=== PATIENT | male | born 1980 | race Caucasian/White ===

== ENCOUNTER 2017-12-12 08:26 | Emergency (ER) | payer SELFPAY ==
--- NOTE | 2017-12-12 08:37 | ER Report ---
History and Physical Time Seen By MD: 08:38 Hx. of Stated Complaint: Patient complains of pain all over, mostly neck and back. HPI/ROS CHIEF COMPLAINT: diffuse musculoskeletal pain HISTORY OF PRESENT ILLNESS: This is a 37 year old male. He has a history of episodes of diffuse pain and a history of neck and back problems. Other doctors have told him that they think he may had ankylosing spondylitis or other problems. He has had about 1 week of diffuse musculoskeletal pain, worsened to the point today that he decided to come in to try and get some relief. He has had narcotics in the past for pain medicines, but does not like the way they make him feel and uses them only with severe pain. He prefers to use anti-inf lammatories. He has been having some pain in his chest as well. Across the chest and into his left arm. No fevers, but has had some sweats. He has mild nausea but no vomiting. Normal bowel and bladder, without changes. He had injured his left ankle last week with bruising and still has pain there. Most of the pain is in his back and neck. No over the counter medicines or prescriptions at this time. No rashes. REVIEW OF SYSTEMS: As above. Allergies: Coded Allergies: Penicillins (Verified Allergy, Mild, 12/12/17) UNKNOWN REACTION Home Meds Active Scripts Hydrocodone Bit/Acetaminophen (HYDROCODON-ACETAMINOPHEN 5-325) 1 Each Tablet, 1 EACH PO Q4H PRN for PAIN, #8 TAB 0 Refills Prov:KELTON HUERATS MD 12/12/17 Ketorolac Tromethamine (KETOROLAC TROMETHAMINE) 10 Mg Tab, 10 MG PO Q6H PRN for PAIN, #12 TAB 0 Refills Prov:KELTON HUERTAS MD 12/12/17 Reviewed Nurses Notes: Yes Hx Substance Use Disorder: No Hx Alcohol Use: Yes (RARE) Constitutional Vital Sign - Last 24 Hours 12/12/17 12/12/17 12/12/17 12/12/17 08:29 08:30 08:45 09:00 Temp 97.6 Pulse 83 85 81 71 Resp 16 B/P (MAP) 147/97 147/97 (114) 132/86 (101) Pulse Ox 94 94 94 92 O2 Delivery Room Air 12/12/17 12/12/17 12/12/17 12/12/17 10:00 10:15 10:30 10:39 Pulse 74 73 75 B/P (MAP) 125/89 (101) 121/90 (100) 131/103 (112) Pulse Ox 92 95 91 Physical Exam General Appearance: The patient is alert. Mild distress due to diffuse pain. Non-toxic in appearance. Eyes: Pupils are equal, round. Reactive to light. No pallor, injection or icterus. Extraocular movements are intact. ENT: Mucous membranes are moist. Normal oral mucosa. Posterior oropharynx is normal. Normal tympanic membranes and canals. Neck: Supple and non tender anterior. No lymphadenopathy. Respiratory: Breathing easily and unlabored. Lungs are clear to auscultation. Cardiovascular: Regular rate and rhythm. No murmurs, gallops or rubs. Normal capillary refill. No edema. Gastrointestinal: Abdomen is soft and non tender. Nondistended. Normal active bowel sounds. No costovertebral angle tenderness with percussion. Neurological: Alert and oriented x3. Cranial nerves II through XII show no acute deficits on my exam. No focal neurologic deficits in the extremities. Skin: Warm and dry. No rashes. Musculoskeletal: Pain diffusely, worse in neck, shoulders and lower back. Pain in both malleoli of the left ankle, but none in the head of 5th metatarsal. Normal in calves bilaterally. Full range of motion. Diffuse tenderness in the neck and back, more in the muscles than midline. DIFFERENTIAL DIAGNOSIS: After history and physical exam, differential diagnosis was considered for diffuse musculoskeletal pain, suggesting a polyarthropathy or connective tissue disorder with current flare up. Will check the ankle, the chest pain for other causes, and other basic labs looking for metabolic or infectious problems as well. Medical Decision Making Data Points Result Diagram: 12/12/17 0835 12/12/17 0835 Laboratory Hematology Test 12/12/17 08:35 12/12/17 09:23 Red Blood Count 5.89 M/uL (4.00-5.60) Mean Corpuscular Volume 94.6 fL (80.0-96.0) Mean Corpuscular Hemoglobin 32.8 pg (26.0-33.0) Mean Corpuscular Hemoglobin Concent 34.7 g/dL (32.0-36.0) Red Cell Distribution Width 13.9 % (11.5-14.5) Mean Platelet Volume 9.3 fL (7.2-11.1) Neutrophils (%) (Auto) 63.8 % (39.4-72.5) Lymphocytes (%) (Auto) 23.2 % (17.6-49.6) Monocytes (%) (Auto) 9.4 % (4.1-12.4) Eosinophils (%) (Auto) 2.5 % (0.4-6.7) Basophils (%) (Auto) 1.1 % (0.3-1.4) Nucleated RBC Relative Count (auto) 0.0 /100WBC Neutrophils # (Auto) 4.8 K/uL (2.0-7.4) Lymphocytes # (Auto) 1.7 K/uL (1.3-3.6) Monocytes # (Auto) 0.7 K/uL (0.3-1.0) Eosinophils # (Auto) 0.2 K/uL (0.0-0.5) Basophils # (Auto) 0.1 K/uL (0.0-0.1) Nucleated RBC Absolute Count (auto) 0.00 K/uL Erythrocyte Sedimentation Rate 3 mm/HOUR (0-15) Sodium Level 137 mmol/L (137-145) Potassium Level 4.3 mmol/L (3.5-5.0) Chloride Level 103 mmol/L (98-107) Carbon Dioxide Level 24 mmol/L (22-30) Blood Urea Nitrogen 14 mg/dl (9-21) Creatinine 0.90 mg/dl (0.66-1.25) Glomerular Filtration Rate Calc > 60.0 Random Glucose 103 mg/dl (75-110) Calcium Level 9.4 mg/dl (8.4-10.2) Total Bilirubin 0.3 mg/dl (0.2-1.3) Aspartate Amino Transf (AST/SGOT) 27 U/L (0-35) Alanine Aminotransferase (ALT/SGPT) 60 U/L (0-56) Alkaline Phosphatase 61 U/L (0-126) Troponin I < 0.012 ng/ml C-Reactive Protein 0.7 mg/dl (<1.0) Total Protein 7.2 g/dl (6.3-8.2) Albumin 4.5 g/dl (3.5-5.0) Urine Color Straw Urine Clarity Clear Urine pH 6.0 pH (4.8-9.5) Urine Specific [place] 1.006 Urine Protein Negative mg/dL (NEGATIVE) Urine Glucose (UA) Negative mg/dL (NEGATIVE) Urine Ketones Negative mg/dL (NEGATIVE) Urine Blood Negative (NEGATIVE) Urine Nitrite Negative (NEGATIVE) Urine Bilirubin Negative (NEGATIVE) Urine Urobilinogen Negative mg/dL (0.2-1.9) Urine Leukocyte Esterase Negative (NEGATIVE) Urine RBC None /HPF (0-2/HPF) Urine WBC <1 /HPF (0-5/HPF) Urine Squamous Epithelial Cells None /LPF (</=FEW) Urine Bacteria Negative /HPF (NONE-FEW) Urine Mucus None /HPF (NONE-FEW) Chemistry Test 12/12/17 08:35 12/12/17 09:23 White Blood Count 7.5 k/uL (4.5-11.0) Red Blood Count 5.89 M/uL (4.00-5.60) Hemoglobin 19.3 g/dL (14.0-18.0) Hematocrit 55.7 % (42.0-52.0) Mean Corpuscular Volume 94.6 fL (80.0-96.0) Mean Corpuscular Hemoglobin 32.8 pg (26.0-33.0) Mean Corpuscular Hemoglobin Concent 34.7 g/dL (32.0-36.0) Red Cell Distribution Width 13.9 % (11.5-14.5) Platelet Count 199 K/uL (150-450) Mean Platelet Volume 9.3 fL (7.2-11.1) Neutrophils (%) (Auto) 63.8 % (39.4-72.5) Lymphocytes (%) (Auto) 23.2 % (17.6-49.6) Monocytes (%) (Auto) 9.4 % (4.1-12.4) Eosinophils (%) (Auto) 2.5 % (0.4-6.7) Basophils (%) (Auto) 1.1 % (0.3-1.4) Nucleated RBC Relative Count (auto) 0.0 /100WBC Neutrophils # (Auto) 4.8 K/uL (2.0-7.4) Lymphocytes # (Auto) 1.7 K/uL (1.3-3.6) Monocytes # (Auto) 0.7 K/uL (0.3-1.0) Eosinophils # (Auto) 0.2 K/uL (0.0-0.5) Basophils # (Auto) 0.1 K/uL (0.0-0.1) Nucleated RBC Absolute Count (auto) 0.00 K/uL Erythrocyte Sedimentation Rate 3 mm/HOUR (0-15) Glomerular Filtration Rate Calc > 60.0 Calcium Level 9.4 mg/dl (8.4-10.2) Total Bilirubin 0.3 mg/dl (0.2-1.3) Aspartate Amino Transf (AST/SGOT) 27 U/L (0-35) Alanine Aminotransferase (ALT/SGPT) 60 U/L (0-56) Alkaline Phosphatase 61 U/L (0-126) Troponin I < 0.012 ng/ml C-Reactive Protein 0.7 mg/dl (<1.0) Total Protein 7.2 g/dl (6.3-8.2) Albumin 4.5 g/dl (3.5-5.0) Urine Color Straw Urine Clarity Clear Urine pH 6.0 pH (4.8-9.5) Urine Specific [place] 1.006 Urine Protein Negative mg/dL (NEGATIVE) Urine Glucose (UA) Negative mg/dL (NEGATIVE) Urine Ketones Negative mg/dL (NEGATIVE) Urine Blood Negative (NEGATIVE) Urine Nitrite Negative (NEGATIVE) Urine Bilirubin Negative (NEGATIVE) Urine Urobilinogen Negative mg/dL (0.2-1.9) Urine Leukocyte Esterase Negative (NEGATIVE) Urine RBC None /HPF (0-2/HPF) Urine WBC <1 /HPF (0-5/HPF) Urine Squamous Epithelial Cells None /LPF (</=FEW) Urine Bacteria Negative /HPF (NONE-FEW) Urine Mucus None /HPF (NONE-FEW) Urinalysis Test 12/12/17 09:23 Urine Color Straw Urine Clarity Clear Urine pH 6.0 pH (4.8-9.5) Urine Specific [place] 1.006 Urine Protein Negative mg/dL (NEGATIVE) Urine Glucose (UA) Negative mg/dL (NEGATIVE) Urine Ketones Negative mg/dL (NEGATIVE) Urine Blood Negative (NEGATIVE) Urine Nitrite Negative (NEGATIVE) Urine Bilirubin Negative (NEGATIVE) Urine Urobilinogen Negative mg/dL (0.2-1.9) Urine Leukocyte Esterase Negative (NEGATIVE) Urine RBC None /HPF (0-2/HPF) Urine WBC <1 /HPF (0-5/HPF) Urine Squamous Epithelial Cells None /LPF (</=FEW) Urine Bacteria Negative /HPF (NONE-FEW) Urine Mucus None /HPF (NONE-FEW) EKG/Imaging EKG Interpretation 12 lead EKG: Rhythm: normal sinus rhythm, rate 78 [place]: normal QRS: normal ST segments: normal Imaging CHEST SINGLE AP INDICATION: chest pain COMPARISON: None available FINDINGS: Heart size within normal limits. There is no focal infiltrate or lobar consolidation. There is no pneumothorax or pleural effusion. IMPRESSION: 1. No acute cardiopulmonary process. Report Dictated By: Geovanni Alcantar at 12/12/2017 10:34 AM ANKLE 3 VIEW MIN LEFT Indication: Pain Comparison: None Available Findings: No evidence of fracture, dislocation, or acute osseous abnormality of the left ankle. The ankle mortise is symmetric. There is no significant ankle joint effusion. There is no focal soft tissue abnormality. No evidence of radiopaque foreign body. IMPRESSION: 1. No acute osseous abnormality of the left ankle Report Dictated By: Geovanni Alcantar at 12/12/2017 10:36 AM ED Course/Re-evaluation Clinical Indication for ER IV: Hydration, IV Access ED Course Patient is much improved after Toradol injection and lortab 5/325 oral dose. Imaging and labs unremarkable. See instructions below. Decision to Disposition Date: Dec 12, 2017 Decision to Disposition Time: 10:36 Depart Departure Latest Vital Signs Vital Signs Date Time Temp Pulse Resp B/P (MAP) Pulse Ox O2 Delivery O2 Flow Rate FiO2 12/12/17 10:39 131/103 (112) 12/12/17 10:30 75 91 12/12/17 08:29 97.6 16 Room Air Impression: Primary Impression: Musculoskeletal pain Condition: Improved Disposition: HOME OR SELF-CARE New Scripts Hydrocodone Bit/Acetaminophen (HYDROCODON-ACETAMINOPHEN 5-325) 1 Each Tablet 1 EACH PO Q4H PRN for PAIN, #8 TAB 0 Refills Prov: KELTON HUERTAS MD 12/12/17 Ketorolac Tromethamine (KETOROLAC TROMETHAMINE) 10 Mg Tab 10 MG PO Q6H PRN for PAIN, #12 TAB 0 Refills Prov: KELTON HUERTAS MD 12/12/17 Patient Instructions: Musculoskeletal Pain (ED) Additional Instructions: Toradol 10mg, one every 6 hours as needed for pain Lortab 5/325, one every 4 hours as needed for severe pain. Apply ice or heat as needed. KELTON HUERTAS MD Dec 12, 2017 08:37
[2017-12-12] MEDS ORDERED: APAP/HYDROCODONE 325/5 TAB PO ONE (08:50)
[2017-12-12] MEDS ORDERED: KETOROLAC 60 MG/2 ML VIAL IM ONE (08:50)
[2017-12-12] MEDS ORDERED: NS(*) 0.9% 1000 ML BAG 1,000 ML IV ONE (08:50)
[2017-12-12 08:53] LABS: PLATELET COUNT, AUTOMATED 199 K/uL (150-450)
--- NOTE | 2017-12-12 09:28 | EKG ---
FACILITY: [facility] - [place] PATIENT NAME: ANDREW BOOTH : [id number] MR: [id number] V: [id number] EXAM DATE: ORDERING PHYSICIAN: KELTON HUERTAS TECHNOLOGIST: DEVORAH Test Reason : CP Blood Pressure : / mmHG Vent. Rate : 078 BPM Atrial Rate : 078 BPM P-R Int : 126 ms QRS Dur : 078 ms QT Int : 358 ms P-R-T Axes : 022 065 039 degrees QTc Int : 408 ms Sinus rhythm Nonspecific ST abnormality Abnormal ECG No previous ECGs available Confirmed by LEELA WESTON ([id number]) on 12/12/2017 3:41:11 PM Referred By: ALEKSANDAR Confirmed By:LEELA WESTON
--- NOTE | 2017-12-12 10:38 | RADIOLOGY IMAGING REPORT ---
FACILITY: [facility] - [place], [place] PATIENT NAME: Xavier Carpenter : 1980 MR: [id number] V: [id number] EXAM DATE: ORDERING PHYSICIAN: KELTON HUERTAS TECHNOLOGIST: Location: [facility] - [place] Patient: Xavier Carpenter : 1980 Visit/Account:[id number] Date of Sevice: 12/12/2017 CHEST SINGLE AP INDICATION: chest pain COMPARISON: None available FINDINGS: Heart size within normal limits. There is no focal infiltrate or lobar consolidation. There is no pneumothorax or pleural effusion. IMPRESSION: 1. No acute cardiopulmonary process. Report Dictated By: Geovanni Alcantar at 12/12/2017 10:34 AM Report E-Signed By: Geovanni Alcantar at 12/12/2017 10:34 AM WSN:[id number]
[2017-12-12 10:39] VITALS: BP 131/103
[2017-12-12] MEDS ORDERED: LOR5/325 PO (10:39)
[2017-12-12] MEDS ORDERED: KET10 PO (10:39)
--- NOTE | 2017-12-12 10:40 | RADIOLOGY IMAGING REPORT ---
FACILITY: [facility] PATIENT NAME: Xavier Carpenter : 1980 MR: [id number] V: [id number] EXAM DATE: ORDERING PHYSICIAN: KELTON HUERTAS TECHNOLOGIST: Location: [facility] [place] Patient: Xavier Carpenter : 1980 Visit/Account:[id number] Date of Sevice: 12/12/2017 ANKLE 3 VIEW MIN LEFT Indication: Pain Comparison: None Available Findings: No evidence of fracture, dislocation, or acute osseous abnormality of the left ankle. The ankle mortise is symmetric. There is no significant ankle joint effusion. There is no focal soft tissue abnormality. No evidence of radiopaque foreign body. IMPRESSION: 1. No acute osseous abnormality of the left ankle Report Dictated By: Geovanni Alcantar at 12/12/2017 10:36 AM Report E-Signed By: Geovanni Alcantar at 12/12/2017 10:37 AM WSN:[id number]
== END 2017-12-12 10:45 | disposition home or self-care (01) ==
LOC: ER 08:28
DX: M79.1 Myalgia (principal)
CPT/HCPCS: 71045; 73610; 81001; 84484; 85025; 85651; 86140; 93005; 96360; 96372; 99284; J1885; J7030; 82040; 82247; 82310; 82374; 82435; 82565; 82947; 84075; 84132; 84155; 84295; 84450; 84460; 84520

== ENCOUNTER 2017-12-16 10:10 | Emergency (ER) | payer SELFPAY ==
[~2017-12-16 10:10] MED LIST: KET10 PO; LOR5/325 PO
--- NOTE | 2017-12-16 10:47 | ER Report ---
History and Physical Time Seen By MD: 10:46 Hx. of Stated Complaint: NECK PAIN HPI/ROS CHIEF COMPLAINT: Neck pain HISTORY OF PRESENT ILLNESS: This is a 37 year old male. He has a history of episodes of diffuse pain and a history of neck and back problems. Patient was seen on December [address] Baker. It was diagnosed with musculoskeletal back and neck pain and started on Toradol and hydrocodone that this is not helping him at this time. If primary care doctor has told him that he may had ankylosing spondylitis or other problems. He has had about 1 week of diffuse musculoskeletal pain, worsened to the point today that he decided to come in to try and get some relief. He has had narcotics in the past for pain medicines, but does not like the way they make him feel and uses them only with severe pain. He prefers to use anti-inflammatories. He has been having some pain in his lower back as well. Normal bowel and bladder, without changes. Most of the pain is in his back and neck. He should have been taking tramadol and hydrocodone with minimal relief REVIEW OF SYSTEMS: Respiratory: No cough, no dyspnea. Cardiovascular: No chest pain, no palpitations. Gastrointestinal: No vomiting, no abdominal pain. Musculoskeletal: Neck pain, lower back pain Allergies: Coded Allergies: Penicillins (Verified Allergy, Mild, 12/16/17) UNKNOWN REACTION Home Meds Active Scripts Ketorolac Tromethamine (KETOROLAC TROMETHAMINE) 10 Mg Tab, 10 MG PO Q6H PRN for PAIN, #12 TAB 0 Refills Prov:KELTON BAKER MD 12/12/17 Discontinued Scripts Hydrocodone Bit/Acetaminophen (HYDROCODON-ACETAMINOPHEN 5-325) 1 Each Tablet, 1 EACH PO Q4H PRN for PAIN, #8 TAB 0 Refills Prov:KELTON BAKER MD 12/12/17 Past Medical/Surgical History History of C6-C7 fusion, history of chronic pain Hx Substance Use Disorder: No Hx Alcohol Use: Yes (RARE) Constitutional Vital Sign - Last 24 Hours 12/16/17 10:23 Temp 97.8 Pulse 115 Resp 22 B/P (MAP) 135/102 Pulse Ox 93 O2 Delivery Room Air Physical Exam General appearance: alert no distress. Back: Cervical spine has no midline tenderness but right-sided paraspinal muscle tenderness to palpation Thoracic spine has no spinal or paraspinal tenderness to palpation. Lumbar spine has no spinal tenderness moderateparaspinal tenderness on the right side Gastroinal: Abdomen is soft, non tender, no masses.. Skin: No lesions and no rashes. Vascular: Normal capillary refill and pulses to feet. Neurological: Motor function: leg strength normal and symmetric for both legs Sensory function: normal for all leg dermatomes. Straight leg raise negative to 70 degrees. Reflexes normal bilaterally on legs. Examination of the Right and Left hands reveals no acute deformity. The patient is able to give a thumbs up sign, is able to make an okay sign, and is able to AB duct the fingers. Sensation is intact over the dorsal 1st web space, the volar aspect of the 2nd finger, and the volar aspect of the 5th finger. Capillary refill is brisk. Medical Decision Making ED Course/Re-evaluation ED Course Exam consistent with cervical radiculopathy and musculoskeletal pain. We will increase patient's pain coverage to Percocet and add methocarbamol. Decision to Disposition Date: Dec 16, 2017 Decision to Disposition Time: 11:29 Depart Departure Latest Vital Signs Vital Signs Date Time Temp Pulse Resp B/P (MAP) Pulse Ox O2 Delivery O2 Flow Rate FiO2 12/16/17 10:23 97.8 115 22 135/102 93 Room Air Impression: Primary Impression: Musculoskeletal pain Condition: Improved Disposition: HOME OR SELF-CARE New Scripts Methocarbamol (METHOCARBAMOL) 750 Mg Tablet 1500 MG PO QID for Muscle Relaxant, #30 TAB 0 Refills Prov: JONATHAN MICHAELS MD 12/16/17 Patient Instructions: Musculoskeletal Pain (ED) JONATHAN MICHAELS MD Dec 16, 2017 10:47
[2017-12-16] MEDS ORDERED: KETOROLAC 60 MG/2 ML VIAL IM ONE (10:50)
[2017-12-16] MEDS ORDERED: ORPHENADRINE 60MG/2ML INJ IM ONE (10:50)
[2017-12-16] MEDS ORDERED: ONDANSETRON 4 MG ODT TABDP SL ONE (11:00)
[2017-12-16] MEDS ORDERED: FAMOTIDINE 20 MG TAB PO ONE (11:00)
[2017-12-16] MEDS ORDERED: OXYC-865 PO (11:27)
[2017-12-16] MEDS ORDERED: METH-280 PO (11:27)
[2017-12-16 11:30] VITALS: BP 135/91
== END 2017-12-16 11:41 | disposition home or self-care (01) ==
LOC: ER 10:26
DX: M54.2 Cervicalgia (principal); G89.29 Other chronic pain
CPT/HCPCS: 96372; 99283; J1885; J2360; S0119